=== PATIENT | male | born 1985 | race Caucasian/White ===

== ENCOUNTER 2019-12-04 21:45 | Emergency (ER) | payer SELFPAY ==
[~2019-12-04] VITALS: Ht 177.8 cm; Wt 75.0 kg
[~2019-12-04 21:45] MED LIST: NKDA; NO HOME MEDICATIONS
[2019-12-04 21:56] VITALS: BP 120/58; TEMP 98.2
[2019-12-04] MEDS ORDERED: BACTRIM DS 8001 TAB PO (22:34)
[2019-12-04] MEDS ORDERED: CEPHALEXIN500 M1 PO (22:34)
[2019-12-04 22:44] VITALS: PULSE 85
== END 2019-12-04 22:44 | disposition home or self-care (01) ==
LOC: COL.ER 21:45
DX: L02.11 Cutaneous abscess of neck (principal); F99 Mental disorder, not otherwise specified; F17.210 Nicotine dependence, cigarettes, uncomplicated